=== PATIENT | female | born 1955 | race Caucasian/White ===

== ENCOUNTER 2017-06-04 11:55 | Inpatient (IN) | payer OTHER ==
[2017-06-04] VITALS (8 sets, daily range): BP systolic 83–111; BP diastolic 54–65; PULSE 99–115; RESP 16–22; TEMP 98.1–99; O2SAT 90–97
[~2017-06-04] VITALS: Ht 162.6 cm; Wt 67.4 kg
[~2017-06-04 11:55] MED LIST: ADVA500A INH; ALBU6.7H INH; FLUT50SP EACH NARE; HYDR50TA94 PO; IPRASOL INH; ONE-TAB PO; PRAM0.12 PO; PRED10 PO; SYMB160A INH; Tumeric PO; UMEC1AER INH; VENTAER INH; ZOLP10TA3 PO
[2017-06-04] MEDS ORDERED: ADVA100A INH (12:30)
[2017-06-04] MEDS ORDERED: VENTAER INH (12:30)
[2017-06-04] MEDS ORDERED: ALBU0.08 NEB (12:30)
[2017-06-04] MEDS ORDERED: SYMB160A INH (12:30)
[2017-06-04] MEDS ORDERED: PRAM0.12 PO (12:30)
[2017-06-04] MEDS ORDERED: SODIUM CHLORIDE 0.9% FLUSH 10 ML FLUSH IVF PRN (12:30)
[2017-06-04] MEDS ORDERED: methylPREDNISolone SOD SUCC 125 MG/2 ML VIAL IVP ONE (12:30)
[2017-06-04] MEDS: RESP: ALBUTEROL 2.5 MG/IPRATROPIUM 0.5 MG NEB (SCH) INH (12:32)
[2017-06-04 13:02] LABS: AUTOMATED NEUTROPHIL # 17.6 TH/MM3 (1.8-7.7); BASOPHIL # 0.4 TH/MM3 (0-0.2); BASOPHIL % 1.7 % (0.0-2.0); EOSINOPHIL % 0.2 % (0.0-4.0); HEMATOCRIT 45.3 % (35.0-46.0); LYMPH % 9.1 % (9.0-44.0); LYMPHOCYTE # 1.9 TH/MM3 (1.0-4.8); MEAN CELL VOLUME 91.4 FL (80.0-100.0); MEAN CORPUSCULAR HGB CONC 32.8 % (32.0-36.0); MONO % 6.7 % (0.0-8.0); NEUT % 82.3 % (16.0-70.0); PLATELET COUNT 268 TH/MM3 (150-450); RED BLOOD COUNT 4.95 MIL/MM3 (4.00-5.30); RED CELL DISTRIBUTION WIDTH 14.6 % (11.6-17.2); WHITE BLOOD COUNT 21.3 TH/MM3 (4.0-11.0)
--- NOTE | 2017-06-04 13:07 | RADRPT ---
EXAM DATE/TIME: 06/04/2017 12:50 [place] COMPARISON: No previous studies available for comparison. INDICATIONS : Short of breath. MEDICAL HISTORY : Chronic obstructive pulmonary disease. SURGICAL HISTORY : None. ENCOUNTER: Initial ACUITY: 1 day PAIN SCORE: 0/10 LOCATION: Bilateral chest FINDINGS: Portable upright AP view of the chest demonstrates a normal-sized cardiac silhouette. There are inter stitial opacities bilaterally, right slightly greater than left. No pleural effusion or pneumothorax is identified. There is possible consolidation at the peripheral right lung base. The bones and soft tissues demonstrate no acute finding. CONCLUSION: 1. Interstitial opacities bilaterally of uncertain chronicity. 2. Possible mild consolidation at the right lung base. Mustapha Fraire MD on June 04, 2017 at 13:05 Board Certified Radiologist. This report was verified electronically.
[2017-06-04 13:10] LABS: CHLORIDE 102 MEQ/L (98-107); POTASSIUM 3.7 MEQ/L (3.5-5.1); SODIUM (NA) 137 MEQ/L (136-145)
[2017-06-04 13:13] LABS: HEMO FLAGS AUTO DIFF
[2017-06-04 13:15] LABS: ANION GAP 9 MEQ/L (5-15); BICARBONATE 26.1 MEQ/L (21.0-32.0); BLOOD UREA NITROGEN 7 MG/DL (7-18)
[2017-06-04 13:18] LABS: GLOMERULAR FILTRATION RATE 78 ML/MIN (>89)
[2017-06-04] MEDS ORDERED: PRED20 PO (13:20)
[2017-06-04] MEDS ORDERED: FLUT1INH INH (13:20)
[2017-06-04] MEDS ORDERED: AZIT250T3 PO (13:20)
--- NOTE | 2017-06-04 13:20 | PD ---
HPI Chief Complaint: Respiratory Symptoms Time Seen by Provider: 12:15 Travel History International Travel<30 days: No Contact w/Intl Traveler<30days: No Traveled to known affect area: No History of Present Illness HPI 62-year-old female arrives complaining of cough and fever generalized aches and pains for about 3 days. She has been using her nebulizer at home every 3 hours or so. She has a history of COPD. She reports a cough with green phlegm production. She notes increasing shortness of breath with exertion. She has chest pain which she attributes to coughing. She states typically pneumonia/ COPD exacerbation presents similarly and responds well to azithromycin and prednisone. 2 days prior she took 20 mg of prednisone at home from a leftover prescription which she found to be unhelpful. PFSH Past Medical History COPD: Yes Respiratory: Yes (COPD) Tetanus Vaccination: > 5 Years Influenza Vaccination: No ?: Not Menopausal: Yes Past Surgical History Genitourinary Surgery: Yes (Bladder) Social History Alcohol Use: Yes (Occ.) Tobacco Use: No Substance Use: No Allergies-Medications (Allergen,Severity, Reaction): Coded Allergies: Advil (Verified Allergy, Severe, Anaphylaxis, 06/04/17) Aleve (Verified Allergy, Severe, Anaphylaxis, 06/04/17) Reported Meds & Prescriptions Reported Meds & Active Scripts Active Azithromycin 250 Mg Tab 250 Mg PO DIRECTED Take 2 tabs (500 mg) on day 1 then 1 tab daily x 4 days. Prednisone 20 Mg Tab 40 Mg PO DAILY 4 Days Take 40 mg (2 tablets) daily for 5 days Breo Ellipta Inh (Fluticasone/Vilanterol) 100-25 Mcg/Act Inh 1 Puff INH DAILY Use daily at the same time. Reported Advair Diskus Inh (Fluticasone-Salmeterol Inh) 100-50 Mcg/Blist Aer 1 Puff INH BID Rinse mouth after use. Albuterol Neb (Albuterol Sulfate) 2.5 Mg/3 Ml Neb 2.5 Mg NEB TID NEB PRN Ventolin Hfa 18 GM Inh (Albuterol Sulfate) 90 Mcg/Act Aer 2 Puff INH TID PRN Symbicort Inh (Budesonide/Formoterol Fumarate) 160-4.5 Mcg/Act Aero 2 Puff INH Q12HR Pramipexole (Pramipexole Dihydrochloride) 0.125 Mg Tab 2 Tab PO DIRECTED Review of Systems Except as stated in HPI: all other systems reviewed are Neg General / Constitutional: Positive: Fever Cardiovascular: Positive: Chest Pain or Discomfort Respiratory: Positive: Cough, Wheezing Gastrointestinal: No: Nausea Physical Exam Narrative GENERAL: 62-year-old female well-nourished well-developed SKIN: Warm and dry. HEAD: Atraumatic. Normocephalic. EYES: Pupils equal and round. No scleral icterus. No injection or drainage. ENT: No nasal bleeding or discharge. Mucous membranes pink and moist. NECK: Trachea midline. No JVD. CARDIOVASCULAR: Minimal tachycardia with a rate of 104 approximately. Regular rhythm. RESPIRATORY: Wheezing present bilaterally. Speaking sentences. GASTROINTESTINAL: Abdomen soft, non-tender, nondistended. Hepatic and splenic margins not palpable. MUSCULOSKELETAL: Extremities without clubbing, cyanosis, or edema. No obvious deformities. NEUROLOGICAL: Awake and alert. No obvious cranial nerve deficits. Motor grossly within normal limits. Five out of 5 muscle strength in the arms and legs. Normal speech. PSYCHIATRIC: Appropriate mood and affect; insight and judgment normal. Data Data Last Documented VS Vital Signs Date Time Temp Pulse Resp B/P Pulse Ox O2 Delivery O2 Flow Rate FiO2 06/04/17 13:20 98.9 109 18 103/58 94 Nasal Cannula 2 Vital signs reviewed Orders Complete Blood Count With Diff (06/04/17 12:19) Basic Metabolic Panel (Bmp) (06/04/17 12:19) B-Type Natriuretic Peptide (06/04/17 12:19) Ckmb (Isoenzyme) Profile (06/04/17 12:19) Troponin I (06/04/17 12:19) Influenzae A/B Antigen (06/04/17 12:19) Iv Access Insert/Monitor (06/04/17 12:19) Electrocardiogram (06/04/17 12:19) Ecg Monitoring (06/04/17 12:19) Oximetry (06/04/17 12:19) Oxygen Administration (06/04/17 12:19) Chest, Single Ap (06/04/17 12:19) Sodium Chloride 0.9% Flush (Ns Flush) (06/04/17 12:30) Methylprednisolone So Succ Inj (Solumedr (06/04/17 12:30) Albuterol-Ipratropium Neb (Duoneb Neb) (06/04/17 12:30) Albuterol Neb (Albuterol Neb) (06/04/17 13:45) Labs Laboratory Tests Test 06/04/17 12:55 White Blood Count 21.3 TH/MM3 Red Blood Count 4.95 MIL/MM3 Hemoglobin 14.9 GM/DL Hematocrit 45.3 % Mean Corpuscular Volume 91.4 FL Mean Corpuscular Hemoglobin 30.0 PG Mean Corpuscular Hemoglobin 32.8 % Concent Red Cell Distribution Width 14.6 % Platelet Count 268 TH/MM3 Mean Platelet Volume 7.2 FL Neutrophils (%) (Auto) 82.3 % Lymphocytes (%) (Auto) 9.1 % Monocytes (%) (Auto) 6.7 % Eosinophils (%) (Auto) 0.2 % Basophils (%) (Auto) 1.7 % Neutrophils # (Auto) 17.6 TH/MM3 Lymphocytes # (Auto) 1.9 TH/MM3 Monocytes # (Auto) 1.4 TH/MM3 Eosinophils # (Auto) 0.0 TH/MM3 Basophils # (Auto) 0.4 TH/MM3 CBC Comment AUTO DIFF Differential Total Cells 100 Counted Neutrophils % (Manual) 79 % Band Neutrophils % 3 % Lymphocytes % 11 % Monocytes % 7 % Neutrophils # (Manual) 17.5 TH/MM3 Differential Comment FINAL DIFF MANUAL Sodium Level 137 MEQ/L Potassium Level 3.7 MEQ/L Chloride Level 102 MEQ/L Carbon Dioxide Level 26.1 MEQ/L Anion Gap 9 MEQ/L Blood Urea Nitrogen 7 MG/DL Creatinine 0.75 MG/DL Estimat Glomerular Filtration 78 ML/MIN Rate Random Glucose 109 MG/DL Calcium Level 9.0 MG/DL Total Creatine Kinase 88 U/L Troponin I LESS THAN 0.02 NG/ML B-Type Natriuretic Peptide 32 PG/ML [facility] Medical Decision Making Medical Screen Exam Complete: Yes Emergency Medical Condition: Yes Differential Diagnosis COPD exacerbation, pneumonia, effusion, CHF, pneumothorax, PE Narrative Course CBC & BMP Diagram 06/04/17 12:55 Troponin less than 0.02 BNP 32 Influenza studies are negative EKG reveals a sinus rhythm at [address] changes Patient received 3 rounds of DuoNeb as well as 125 mg Solu-Medrol. Persistent wheezing noted. 3 additional rounds of albuterol ordered. Since sufficient improvement for discharge home noted by patient who is quite adamant against staying. Prednisone and azithromycin prescription. Return precautions discussed. Patient verbalized understanding. Of note there is a leukocytosis of 21,000 which in this scenario is considered to be combination of presumably the patient's right lung base pneumonia and prednisone from 2 days prior. Diagnosis Primary Impression: COPD (chronic obstructive pulmonary disease) Qualified Code: J44.9 - Chronic obstructive pulmonary disease, unspecified COPD type Additional Impression: Pneumonia Qualified Code: J18.1 - Pneumonia of right lower lobe due to infectious organism Referrals: Primary Care Physician 2 days Additional Instructions: You have a choice when it comes to health care, and we are glad that you chose [facility]. Hopefully, we have met your expectations on today's visit. You are welcome to return to [facility] at any time, as we are committed to meeting the health care needs of our community. If difficulty breathing worsens or if chest pain worsens or if your fever persists please return to the ED right away. Please do not hesitate to return for any reason you consider to be appropriate. Med/Other Pt SpecificInfo: Prescription(s) given Scripts Azithromycin 250 Mg [id number] Mg PO DIRECTED #6 TAB Ref 0 Take 2 tabs (500 mg) on day 1 then 1 tab daily x 4 days. Prov:Eduardo Pickard MD 06/04/17 Prednisone 20 Mg Tab40 Mg PO DAILY 4 Days Ref 0 Take 40 mg (2 tablets) daily for 5 days Prov:Eduardo Pickard MD 06/04/17 Fluticasone-Vilanterol Inh (Breo Ellipta Inh)100-25 Mcg/Act Inh1 Puff INH DAILY #1 INHALER Ref 0 Use daily at the same time. Prov:Eduardo Pickard MD 06/04/17 Disposition: 01 DISCHARGE HOME Condition: Stable Eduardo Pickard MD Jun 04, 2017 13:20
[2017-06-04 13:41] LABS: CREATINE KINASE 88 U/L (26-192)
[2017-06-04 13:47] LABS: BANDS 3 % (0-6); NEUTROPHIL # MANUAL DIFF 17.5 TH/MM3 (1.8-7.7); POLYS (SEG NEUTROPHILS) 79 % (16-70); SCAN/DIFF FINAL DIFF MANUAL; WBC DIFF SAMPLE 100
[2017-06-04] MEDS: RESP: ALBUTEROL 2.5 MG/3 ML NEB (SCH) INH ×2 (13:56→14:14)
[2017-06-04] MEDS ORDERED: cefTRIAXone INJ 1,000 MG in SODIUM CHLORIDE 0.9% INJ 100 ML IV ONE (15:00)
[2017-06-04] MEDS ORDERED: AZITHROMYCIN INJ 500 MG in SODIUM CHLOR 0.9% 250 ML INJ 250 ML IV ONE (15:00)
--- NOTE | 2017-06-04 15:09 | EKG ---
Date Performed: 06/04/2017 Time Performed: 12:45:49 PTAGE: 62 years EKG: SINUS TACHYCARDIA NONSPECIFIC ST & T-WAVE ABNORMALITY ABNORMAL RHYTHM ECG Compared to the PREVIOUS TRACING rate has increased . PREVIOUS TRACIN09/28/1997 15.02 DOCTOR: Jed Coughlin Interpretating Date/Time 06/04/2017 15:07:55
[2017-06-04] MEDS ORDERED: cefTRIAXone INJ 1,000 MG in SODIUM CHLORIDE 0.9% INJ 100 ML IV SCH (15:30)
[2017-06-04] MEDS ORDERED: PRAMIPEXOLE PO SCH (15:30)
[2017-06-04] MEDS ORDERED: SODIUM CHLORIDE 0.9% FLUSH 10 ML FLUSH IV FLUSH PRN (15:30)
[2017-06-04] MEDS ORDERED: AZITHROMYCIN 250 MG TAB PO SCH (15:30)
[2017-06-04] MEDS ORDERED: RESP: ALBUTEROL 2.5 MG/IPRATROPIUM 0.5 MG NEB (PRN) NEB (15:30)
[2017-06-04] MEDS ORDERED: LORazepam 2 MG/ML VIAL IV PUSH ONE (16:00)
--- NOTE | 2017-06-04 16:48 | HHI.HP ---
[facility] No Primary Care Physician Admission Diagnosis PNA, COPD, Hypoxemia Diagnoses: (1) COPD with exacerbation (2) COPD with respiratory failure, acute (3) COPD with lower respiratory infection (4) Respiratory failure with hypoxia (5) Community acquired bacterial pneumonia Chief Complaint: Shortness of breath Travel History International Travel<30 Days: No Contact w/Intl Traveler <30 Da: No Traveled to Known Affected Are: No History of Present Illness 62-year-old female with a history of COPD came to the ED for evaluation of worsening respiratory symptoms including shortness of breath with exertion times several day duration, along with cough production of green sputum as well as febrile episodes. Reported maximal temperature of 104 yesterday. Patient states over the past several days she's been puffing more and had no relief on Sunday after she up her nebulizer treatment to every 2 hours. She reported having difficulty catching her breath. While in emergency department as patient was being initially discharged she was noted to be more dyspneic with a pulse ox of 88%. Patient has smoked in the past 1 ppd since the age of 14 however now she uses a Vaporized e-cigarette .She denies any hemoptysis or GI bleed. Review of Systems Except as stated in HPI: all other systems reviewed are Neg Past Family Social History Past Medical History COPD Past Surgical History Genitourinary Surgery: Yes (Bladder) Reported Medications Azithromycin 250 Mg Tab 250 Mg PO DIRECTED Take 2 tabs (500 mg) on day 1 then 1 tab daily x 4 days. Prednisone 20 Mg Tab 40 Mg PO DAILY 4 Days Take 40 mg (2 tablets) daily for 5 days Breo Ellipta Inh (Fluticasone/Vilanterol) 100-25 Mcg/Act Inh 1 Puff INH DAILY Use daily at the same time. Reported Advair Diskus Inh (Fluticasone-Salmeterol Inh) 100-50 Mcg/Blist Aer 1 Puff INH BID Rinse mouth after use. Albuterol Neb (Albuterol Sulfate) 2.5 Mg/3 Ml Neb 2.5 Mg NEB TID NEB PRN Ventolin Hfa 18 GM Inh (Albuterol Sulfate) 90 Mcg/Act Aer 2 Puff INH TID PRN Symbicort Inh (Budesonide/Formoterol Fumarate) 160-4.5 Mcg/Act Aero 2 Puff INH Q12HR Pramipexole (Pramipexole Dihydrochloride) 0.125 Mg Tab 2 Tab PO DIRECTED Allergies: Coded Allergies: Advil (Verified Allergy, Severe, Anaphylaxis, 06/04/17) Aleve (Verified Allergy, Severe, Anaphylaxis, 06/04/17) Family History Father has a history of throat cancer Social History Alcohol Use: Yes (Occ.) Tobacco Use: No Substance Use: No Physical Exam Vital Signs Vital Signs Date Time Temp Pulse Resp B/P Pulse Ox O2 Delivery O2 Flow Rate FiO2 06/04/17 14:20 115 22 104/54 92 Nasal Cannula 2 06/04/17 13:20 98.9 109 18 103/58 94 Nasal Cannula 2 06/04/17 12:35 95 Nasal Cannula 2.00 06/04/17 12:20 92 Nasal Cannula 2 06/04/17 12:20 22 92 Nasal Cannula 2 06/04/17 12:20 92 Nasal Cannula 2 06/04/17 12:05 99.0 111 22 83/57 90 Physical Exam GENERAL: This is a well-nourished, well-developed patient, in no apparent distress. SKIN: No rashes, ecchymoses or lesions. Cool and dry. HEAD: Atraumatic. Normocephalic. No temporal or scalp tenderness. EYES: Pupils equal round and reactive. Extraocular motions intact. No scleral icterus. No injection or drainage. ENT: Nose without bleeding, purulent drainage or septal hematoma. Throat without erythema, tonsillar hypertrophy or exudate. Uvula midline. Airway patent. NECK: Trachea midline. No JVD or lymphadenopathy. Supple, nontender, no meningeal signs. CARDIOVASCULAR: Regular rate and rhythm without murmurs, gallops, or rubs. RESPIRATORY: Breath sounds Decrease bilaterally. + wheezes GASTROINTESTINAL: Abdomen soft, non-tender, nondistended. No hepato-splenomegaly , or palpable masses. No guarding. MUSCULOSKELETAL: Extremities without clubbing, cyanosis, or edema. No joint tenderness, effusion, or edema noted. No calf tenderness. Negative Homans sign bilaterally. NEUROLOGICAL: Awake and alert. Cranial nerves II through XII intact. Motor and sensory grossly within normal limits. Five out of 5 muscle strength in all muscle groups. Normal speech. Laboratory Laboratory Tests Test 06/04/17 12:55 White Blood Count 21.3 Red Blood Count 4.95 Hemoglobin 14.9 Hematocrit 45.3 Mean Corpuscular Volume 91.4 Mean Corpuscular Hemoglobin 30.0 Mean Corpuscular Hemoglobin 32.8 Concent Red Cell Distribution Width 14.6 Platelet Count 268 Mean Platelet Volume 7.2 Neutrophils (%) (Auto) 82.3 Lymphocytes (%) (Auto) 9.1 Monocytes (%) (Auto) 6.7 Eosinophils (%) (Auto) 0.2 Basophils (%) (Auto) 1.7 Neutrophils # (Auto) 17.6 Lymphocytes # (Auto) 1.9 Monocytes # (Auto) 1.4 Eosinophils # (Auto) 0.0 Basophils # (Auto) 0.4 CBC Comment AUTO DIFF Differential Total Cells 100 Counted Neutrophils % (Manual) 79 Band Neutrophils % 3 Lymphocytes % 11 Monocytes % 7 Neutrophils # (Manual) 17.5 Differential Comment FINAL DIFF MANUAL Sodium Level 137 Potassium Level 3.7 Chloride Level 102 Carbon Dioxide Level 26.1 Anion Gap 9 Blood Urea Nitrogen 7 Creatinine 0.75 Estimat Glomerular Filtration 78 Rate Random Glucose 109 Calcium Level 9.0 Total Creatine Kinase 88 Troponin I LESS THAN 0.02 B-Type Natriuretic Peptide 32 Date/Time Procedure Status Source Growth 06/04/17 15:05 Aerobic Blood Culture Received Blood Peripheral Pending 06/04/17 15:05 Anaerobic Blood Culture Received Blood Peripheral Pending 06/04/17 13:20 Influenza Types A,B Antigen (QUOC) - Final Complete Nasal Aspirate NEGATIVE FOR FLU A AND B ANTIGEN.... Result Diagram: 06/04/17 1255 06/04/17 1255 Imaging Last Impressions Chest X-Ray 06/04/17 1219 Signed Impressions: Service Date/Time: Sunday, June 04, 2017 12:50 - CONCLUSION: 1. Interstitial opacities bilaterally of uncertain chronicity. 2. Possible mild consolidation at the right lung base. Mustapha Fraire MD Assessment and Plan Problem List: (1) COPD with exacerbation ICD Code: J44.1 Status: Acute (2) Community acquired bacterial pneumonia ICD Code: J15.9 Status: Acute (3) Respiratory failure, acute ICD Code: J96.00 Status: Acute (4) Respiratory failure with hypoxia ICD Code: J96.91 Status: Acute (5) COPD with respiratory failure, acute ICD Code: J96.00 Status: Acute (6) COPD with lower respiratory infection ICD Code: J44.0 Status: Acute Assessment and Plan 62 year-old female with Acute COPD exacerbation COPD with respiratory failure COPD with lower respiratory infection Chest x-ray noted and review by me with finding of Interstitial opacities bilaterally of uncertain chronicity. 2. Possible mild consolidation at the right lung base Pulse oximetry documented as patient was leaving the ED 88 % Status post appendectomy Medrol 125 mg IV 1, scheduled Solu-Medrol 40 mg IV every 8H, long and short acting bronchodilator, antibiotics, Mucinex Check ABGs Perform walk test prior to discharge Community-acquired bacteria pneumonia Chest x-ray noted and review by me with finding of possible mild consolidation at the right lung base, and patient with leukocytosis Status post azithromycin and Rocephin, continue antibiotics pending culture Influenza A and B negative, check urinary pneumococcal and Legionella antigens Check Sputum culture Leukocytosis Maybe be secondary to steroid versus infectious process Monitor WBC DVT prophylaxis: Bilateral SCDs Code Status Full code Discussed Condition With Patient, , ED physician Physician Certification 2 Midnight Certification Type: Admission for Inpatient Services Order for Inpatient Services The services are ordered in accordance with Medicare regulations or non- Medicare payer requirements, as applicable. In the case of services not specified as inpatient-only, they are appropriately provided as inpatient services in accordance with the 2-midnight benchmark. Estimated LOS (days): 2 days is the estimated time the patient will need to remain in the hospital, assuming treatment plan goals are met and no additional complications. Post-Hospital Plan: Not yet determined Marcello Jackson MD Jun 04, 2017 16:48
[2017-06-04 17:25] LABS: BLOOD GAS BASE EXCESS 0.3 mmol/L (-2-2); BLOOD GAS CARBOXYHEMOGLOBIN 3.6 % (0-4); BLOOD GAS HCO3 25 mmol/L (22-26); BLOOD GAS O2 HGB SATURATION 88 % (90-100); BLOOD GAS OXYGEN CONTENT 17.8 Vol % (12.0-20.0); BLOOD GAS PCO2 42 mmHG (38-42); BLOOD GAS PO2 64 mmHG (61-120); BLOOD GAS TOTAL HGB 14.4 G/DL (12.0-16.0); CRITICAL VALUE YES; OXYGEN DEVICE NASAL CANNULA; TEMP CORR TO 98.6
[2017-06-04 17:26] LABS: DRAW SITE RT RADIAL; LITER FLOW 2 L/M; NUMBER OF ARTERIAL PUNCTURES 1; STAT YES; ULNAR PULSE PRESENT
[2017-06-04] MEDS: PRAMIPEXOLE DIHYDROCHLORIDE 0.25 MG TAB PO SCH ×2 (17:57→21:02)
[2017-06-04] MEDS ORDERED: ALPRAZolam 0.25 MG TAB PO PRN (18:15)
[2017-06-04] MEDS: RESP: ALBUTEROL 2.5 MG/IPRATROPIUM 0.5 MG NEB (SCH) NEB (19:31)
[2017-06-04] MEDS ORDERED: NON-FORMULARY DRUG (Fluticasone-Salmeterol Inh (Advair Diskus Inh) 1 PUFF) INH SCH (21:00)
[2017-06-04] MEDS: BUDESONIDE-FORMOTEROL 160/4.5 MCG INHALER INH SCH (21:01)
[2017-06-04] MEDS: guaiFENesin E.R. 600 MG TAB PO SCH (21:02)
[2017-06-04] MEDS: SODIUM CHLORIDE 0.9% FLUSH 10 ML FLUSH IV FLUSH SCH (21:03)
[2017-06-04] MEDS: methylPREDNISolone SOD SUCC 40 MG/1 ML VIAL IV PUSH SCH (21:03)
[2017-06-05] VITALS (7 sets, daily range): BP systolic 102–117; BP diastolic 65–69; PULSE 91–97; RESP 16–20; TEMP 96.7–97.6; O2SAT 92–97
[2017-06-05] MEDS: methylPREDNISolone SOD SUCC 40 MG/1 ML VIAL IV PUSH SCH ×2 (04:58→22:40)
[2017-06-05] MEDS: RESP: ALBUTEROL 2.5 MG/IPRATROPIUM 0.5 MG NEB (SCH) NEB ×3 (07:35→20:59)
[2017-06-05] MEDS: AZITHROMYCIN 250 MG TAB PO SCH (08:27)
[2017-06-05] MEDS: PRAMIPEXOLE DIHYDROCHLORIDE 0.25 MG TAB PO SCH ×4 (08:28→22:39)
[2017-06-05] MEDS: guaiFENesin E.R. 600 MG TAB PO SCH ×2 (08:28→22:39)
[2017-06-05] MEDS: cefTRIAXone INJ 1,000 MG in SODIUM CHLORIDE 0.9% INJ 100 ML IV SCH (08:31)
[2017-06-05] MEDS: SODIUM CHLORIDE 0.9% FLUSH 10 ML FLUSH IV FLUSH SCH ×2 (08:31→22:40)
[2017-06-05] MEDS: BUDESONIDE-FORMOTEROL 160/4.5 MCG INHALER INH SCH ×2 (08:31→22:38)
--- NOTE | 2017-06-05 10:07 | HHI.PR ---
Subjective Remarks Follow-up COPD with respiratory failure/COPD with lower lung infection/community -acquired bacteria pneumonia 06/05/17-patient seen and examined, reports significant improvement or shortness of breath and currently on 2 L nasal cannula. Afebrile and no acute event overnight Objective Vitals Vital Signs Date Time Temp Pulse Resp B/P Pulse Ox O2 Delivery O2 Flow Rate FiO2 06/05/17 08:00 97.4 95 19 106/66 92 06/05/17 07:40 97 Nasal Cannula 2.00 06/05/17 00:00 96.9 97 16 102/69 94 06/04/17 20:00 98.1 99 16 99/65 97 06/04/17 19:30 92 Nasal Cannula 2.00 06/04/17 16:30 98.3 102 20 111/57 93 06/04/17 14:20 115 22 104/54 92 Nasal Cannula 2 06/04/17 13:20 98.9 109 18 103/58 94 Nasal Cannula 2 06/04/17 12:35 95 Nasal Cannula 2.00 06/04/17 12:20 92 Nasal Cannula 2 06/04/17 12:20 22 92 Nasal Cannula 2 06/04/17 12:20 92 Nasal Cannula 2 06/04/17 12:05 99.0 111 22 83/57 90 I/O 06/04/17 06/04/17 06/04/17 06/05/17 06/05/17 06/05/17 06:59 14:59 22:59 06:59 14:59 22:59 Intake Total 600 ml 180 ml Balance 600 ml 180 ml Intake Oral 240 ml 180 ml IV Total 360 ml # Voids 2 1 # Bowel Movements 0 0 Result Diagram: 06/04/17 1255 06/04/17 1255 Imaging Last Impressions Chest X-Ray 06/04/17 1219 Signed Impressions: Service Date/Time: Sunday, June 04, 2017 12:50 - CONCLUSION: 1. Interstitial opacities bilaterally of uncertain chronicity. 2. Possible mild consolidation at the right lung base. Mustapha Fraire MD Objective Remarks GENERAL: NAD SKIN: Warm and dry. HEAD: Normocephalic. EYES: No scleral icterus. No injection or drainage. NECK: Supple, trachea midline. No JVD or lymphadenopathy. CARDIOVASCULAR: Regular rate and rhythm without murmurs, gallops, or rubs. RESPIRATORY: Breath sounds decrease bilaterally. No accessory muscle use. Expiratory wheezes bilaterally GASTROINTESTINAL: Abdomen soft, non-tender, nondistended. MUSCULOSKELETAL: No cyanosis, or edema. BACK: Nontender without obvious deformity. No CVA tenderness. A/P Problem List: (1) COPD with exacerbation ICD Code: J44.1 Status: Acute (2) COPD with respiratory failure, acute ICD Code: J96.00 Status: Acute (3) COPD with lower respiratory infection ICD Code: J44.0 Status: Acute (4) Respiratory failure with hypoxia ICD Code: J96.91 Status: Acute (5) Community acquired bacterial pneumonia ICD Code: J15.9 Status: Acute Assessment and Plan 62 year-old female with Acute COPD exacerbation COPD with respiratory failure COPD with lower respiratory infection Chest x-ray with finding of Interstitial opacities bilaterally of uncertain chronicity. 2. Possible mild consolidation at the right lung base Status post Solu Medrol 125 mg IV 1, change Solu-Medrol 20 mg IV every 12H, long and short acting bronchodilator, antibiotics, Mucinex Perform walk test prior to discharge Community-acquired bacteria pneumonia Chest x-ray with finding of possible mild consolidation at the right lung base, and patient with leukocytosis Status post azithromycin and Rocephin, continue antibiotics pending culture Influenza A and B negative, urinary pneumococcal and Legionella antigens pending Sputum culture pending Leukocytosis Maybe be secondary to steroid versus infectious process Monitor WBC DVT prophylaxis: Bilateral SCDs Marcello Jackson MD Jun 05, 2017 10:07
[2017-06-05] MEDS ORDERED: HYDR50TA94 PO (17:38)
[2017-06-05] MEDS ORDERED: hydrOXYzine HCL 25 MG TAB PO ONE (22:30)
[2017-06-06] VITALS: BP 102/65; PULSE 72; RESP 20; TEMP 97.2; O2SAT 98
[2017-06-06 06:05] LABS: POTASSIUM 4.1 MEQ/L (3.5-5.1)
[2017-06-06 06:11] LABS: BICARBONATE 30.8 MEQ/L (21.0-32.0)
[2017-06-06 06:12] LABS: BASOPHIL % 0.2 % (0.0-2.0); LYMPH % 3.2 % (9.0-44.0); LYMPHOCYTE # 0.7 TH/MM3 (1.0-4.8); MEAN CELL VOLUME 90.8 FL (80.0-100.0); MEAN CORPUSCULAR HEMOGLOBIN 30.3 PG (27.0-34.0); MEAN CORPUSCULAR HGB CONC 33.4 % (32.0-36.0); MONO % 1.1 % (0.0-8.0); NEUT % 95.5 % (16.0-70.0); PLATELET COUNT 328 TH/MM3 (150-450); RED BLOOD COUNT 4.62 MIL/MM3 (4.00-5.30); RED CELL DISTRIBUTION WIDTH 14.3 % (11.6-17.2); WHITE BLOOD COUNT 20.9 TH/MM3 (4.0-11.0)
[2017-06-06 06:13] LABS: HEMO FLAGS DIFF FINAL
[2017-06-06] MEDS: RESP: ALBUTEROL 2.5 MG/IPRATROPIUM 0.5 MG NEB (SCH) NEB (07:23)
[2017-06-06 07:27] VITALS: O2SAT 90
[2017-06-06 08:11] VITALS: O2SAT 97
[2017-06-06] MEDS: PRAMIPEXOLE DIHYDROCHLORIDE 0.25 MG TAB PO SCH ×2 (08:28→13:50)
[2017-06-06] MEDS: methylPREDNISolone SOD SUCC 40 MG/1 ML VIAL IV PUSH SCH (08:29)
[2017-06-06] MEDS: AZITHROMYCIN 250 MG TAB PO SCH (08:29)
[2017-06-06] MEDS: BUDESONIDE-FORMOTEROL 160/4.5 MCG INHALER INH SCH (08:32)
[2017-06-06] MEDS: cefTRIAXone INJ 1,000 MG in SODIUM CHLORIDE 0.9% INJ 100 ML IV SCH (08:34)
[2017-06-06] MEDS: SODIUM CHLORIDE 0.9% FLUSH 10 ML FLUSH IV FLUSH SCH (08:34)
[2017-06-06] MEDS: guaiFENesin E.R. 600 MG TAB PO SCH (08:37)
[2017-06-06 08:48] VITALS: BP 120/73; PULSE 97; RESP 15; TEMP 96.1; O2SAT 91
--- NOTE | 2017-06-06 08:56 | HHI.PR ---
Subjective Remarks Follow-up COPD with respiratory failure/COPD with lower lung infection/community -acquired bacteria pneumonia 06/05/17-patient seen and examined, reports significant improvement or shortness of breath and currently on 2 L nasal cannula. Afebrile and no acute event overnight 06/06/17-patient seen and examined, she only has shortness of breath with exertion otherwise stable. Now only has nonproductive cough but however improved. Afebrile. Would like to go home today. Objective Vitals Vital Signs Date Time Temp Pulse Resp B/P Pulse Ox O2 Delivery O2 Flow Rate FiO2 06/06/17 08:48 96.1 97 15 120/73 91 06/06/17 08:11 97 2.00 06/06/17 07:27 90 21 06/06/17 00:00 97.2 72 20 102/65 98 06/05/17 21:00 94 Nasal Cannula 2.00 06/05/17 20:00 96.7 93 20 117/67 96 06/05/17 16:00 97.1 95 17 109/65 95 06/05/17 12:00 97.6 91 18 110/68 93 I/O 06/05/17 06/05/17 06/05/17 06/06/17 06/06/17 06/06/17 07:00 15:00 23:00 07:00 15:00 23:00 Intake Total 180 ml 240 ml Balance 180 ml 240 ml Intake Oral 180 ml 240 ml # Voids 1 3 # Bowel Movements 0 0 Result Diagram: 06/06/17 0500 06/06/17 0500 Imaging Last Impressions Chest X-Ray 06/04/17 1219 Signed Impressions: Service Date/Time: Sunday, June 04, 2017 12:50 - CONCLUSION: 1. Interstitial opacities bilaterally of uncertain chronicity. 2. Possible mild consolidation at the right lung base. Mustapha Fraire MD Objective Remarks GENERAL: NAD SKIN: Warm and dry. HEAD: Normocephalic. EYES: No scleral icterus. No injection or drainage. NECK: Supple, trachea midline. No JVD or lymphadenopathy. CARDIOVASCULAR: Regular rate and rhythm without murmurs, gallops, or rubs. RESPIRATORY: Breath sounds decrease bilaterally. No accessory muscle use. Expiratory wheezes bilaterally GASTROINTESTINAL: Abdomen soft, non-tender, nondistended. MUSCULOSKELETAL: No cyanosis, or edema. BACK: Nontender without obvious deformity. No CVA tenderness. Procedures none A/P Problem List: (1) COPD with exacerbation ICD Code: J44.1 Status: Acute (2) COPD with respiratory failure, acute ICD Code: J96.00 Status: Acute (3) COPD with lower respiratory infection ICD Code: J44.0 Status: Acute (4) Respiratory failure with hypoxia ICD Code: J96.91 Status: Acute (5) Community acquired bacterial pneumonia ICD Code: J15.9 Status: Acute Assessment and Plan 62 year-old female with Acute COPD exacerbation COPD with respiratory failure COPD with lower respiratory infection Chest x-ray with finding of Interstitial opacities bilaterally of uncertain chronicity. 2. Possible mild consolidation at the right lung base Discontinue Solu-Medrol 20 mg IV every 12H, start prednisone 20 mg by mouth twice a day and continue long and short acting bronchodilator, antibiotics, Mucinex Perform walk test today Community-acquired bacteria pneumonia Chest x-ray with finding of possible mild consolidation at the right lung base, and patient with leukocytosis Status post azithromycin and Rocephin, continue antibiotics pending culture Influenza A and B negative, urinary pneumococcal and Legionella antigens pending Sputum culture pending Leukocytosis Maybe be secondary to steroid versus infectious process Monitor WBC DVT prophylaxis: Bilateral SCDs Marcello Jackson MD Jun 06, 2017 08:56
[2017-06-06] MEDS ORDERED: PRED20 PO (09:02)
[2017-06-06] MEDS ORDERED: VENTAER INH (09:02)
[2017-06-06] MEDS ORDERED: LACTCHW3 CHEW (09:02)
[2017-06-06] MEDS ORDERED: IPRA17I INH (09:02)
[2017-06-06] MEDS ORDERED: FLUT1INH INH (09:02)
[2017-06-06] MEDS ORDERED: AZIT500T2 PO (09:02)
--- NOTE | 2017-06-06 09:05 | HHI.DS ---
Discharge Summary Admission Date Jun 04, 2017 at 14:53 Discharge Date: Jun 06, 2017 Admitting Diagnosis PNA, COPD, Hypoxemia (1) COPD with exacerbation ICD Code: J44.1 (2) COPD with respiratory failure, acute ICD Code: J96.00 (3) COPD with lower respiratory infection ICD Code: J44.0 (4) Respiratory failure with hypoxia ICD Code: J96.91 (5) Community acquired bacterial pneumonia ICD Code: J15.9 Procedures none Brief History - From Admission 62-year-old female with a history of COPD came to the ED for evaluation of worsening respiratory symptoms including shortness of breath with exertion times several day duration, along with cough production of green sputum as well as febrile episodes. Reported maximal temperature of 104 yesterday. Patient states over the past several days she's been puffing more and had no relief on Sunday after she up her nebulizer treatment to every 2 hours. She reported having difficulty catching her breath. While in emergency department as patient was being initially discharged she was noted to be more dyspneic with a pulse ox of 88%. Patient has smoked in the past 1 ppd since the age of 14 however now she uses a Vaporized e-cigarette .She denies any hemoptysis or GI bleed. CBC/BMP: 06/06/17 0500 06/06/17 0500 Significant Findings Laboratory Tests Test 06/04/17 06/04/17 06/06/17 12:55 17:15 05:00 White Blood Count 21.3 TH/MM3 20.9 TH/MM3 (4.0-11.0) (4.0-11.0) Neutrophils (%) (Auto) 82.3 % 95.5 % (16.0-70.0) (16.0-70.0) Neutrophils # (Auto) 17.6 TH/MM3 20.0 TH/MM3 (1.8-7.7) (1.8-7.7) Monocytes # (Auto) 1.4 TH/MM3 (0-0.9) Basophils # (Auto) 0.4 TH/MM3 (0-0.2) Neutrophils % (Manual) 79 % (16-70) Neutrophils # (Manual) 17.5 TH/MM3 (1.8-7.7) Estimat Glomerular Filtration 78 ML/MIN (>89) 78 ML/MIN (>89) Rate Random Glucose 109 MG/DL 178 MG/DL (74-106) (74-106) Troponin I LESS THAN 0.02 NG/ML (0.02-0.05) Blood Gas Oxygen Saturation 88 % (90-100) Lymphocytes (%) (Auto) 3.2 % (9.0-44.0) Lymphocytes # (Auto) 0.7 TH/MM3 (1.0-4.8) Blood Urea Nitrogen 19 MG/DL (7-18) Imaging Last Impressions Chest X-Ray 06/04/17 1219 Signed Impressions: Service Date/Time: Sunday, June 04, 2017 12:50 - CONCLUSION: 1. Interstitial opacities bilaterally of uncertain chronicity. 2. Possible mild consolidation at the right lung base. Mustapha Fraire MD PE at Discharge GENERAL: NAD SKIN: Warm and dry. HEAD: Normocephalic. EYES: No scleral icterus. No injection or drainage. NECK: Supple, trachea midline. No JVD or lymphadenopathy. CARDIOVASCULAR: Regular rate and rhythm without murmurs, gallops, or rubs. RESPIRATORY: Breath sounds decrease bilaterally. No accessory muscle use. Expiratory wheezes bilaterally GASTROINTESTINAL: Abdomen soft, non-tender, nondistended. MUSCULOSKELETAL: No cyanosis, or edema. BACK: Nontender without obvious deformity. No CVA tenderness. Hospital Course She was admitted secondary to COPD exacerbation with respiratory failure as well as pneumonia for which she was treated with steroid, bronchodilator, antibiotics to which patient responded well. DVT and GI prophylaxis were provided. Patient conditions improved prior to discharge and vitals remained stable. She Will be discharged home on 5 day course of antibiotics and then tapered dose prednisone 7 days. Pt Condition on Discharge: Stable Discharge Disposition: Discharge Home Discharge Time: <= 30 minutes Discharge Instructions DIET: Follow Instructions for: Heart Healthy Diet Activities you can perform: Regular-No Restrictions Follow up Referrals: PCP Follow-up - 1 Week New Medications: Albuterol 18 GM Inh (Ventolin Hfa 18 GM Inh) 90 Mcg/Act Aer 1 PUFF INH Q4H PRN SHORTNESS OF BREATH #1 Ref 3 INHALER Azithromycin (Azithromycin) 500 Mg Tab 500 MG PO DAILY Infection #5 Ref 0 TAB Fluticasone-Vilanterol Inh (Breo Ellipta Inh) 100-25 Mcg/Act Inh 1 PUFF INH DAILY Use daily at the same time. Breathing Treatment #1 Ref 3 INHALER Ipratropium HFA 12.9 GM Inh (Atrovent HFA 12.9 GM Inh) 17 Mcg/Act Aer 2 PUFF INH QID Shortness of Breath #1 Ref 3 INHALER Lactobacillus Acidophilus (Lactinex) 1 Chew 1 TAB CHEW DAILY Nutritional Supplement #30 Ref 0 TAB Oxygen (O2) (Oxygen (O2)) Device 2 LITER JERO.CANULA CONTINUOUS Oxygen Concentrator Portable Gaseous 2 L/min via Nasal Canula Continuous For 99 months Prevent Hypoxemia #2 CYLINDER Prednisone (Prednisone) 20 Mg Tab 20 MG PO DAILY Infection #7 TAB Continued Medications: Albuterol 18 GM Inh (Ventolin Hfa 18 GM Inh) 90 Mcg/Act Aer 2 PUFF INH TID PRN SHORTNESS OF BREATH #1 Ref 0 INHALER Budesonide-Formoterol Inh (Symbicort Inh) 160-4.5 Mcg/Act Aero 2 PUFF INH Q12HR #1 Ref 0 INHALER Fluticasone-Vilanterol Inh (Breo Ellipta Inh) 100-25 Mcg/Act Inh 1 PUFF INH DAILY Use daily at the same time. #1 Ref 0 INHALER Hydroxyzine HCl (Hydroxyzine HCl) 50 Mg Tab 50 MG PO HS #30 Ref 0 TAB Pramipexole (Pramipexole) 0.125 Mg Tab 2 TAB PO DIRECTED Parkinson Disease Mgmt #60 Ref 0 TAB Discontinued Medications: Albuterol Neb (Albuterol Neb) 2.5 Mg/3 Ml Neb 2.5 MG NEB TID NEB PRN SHORTNESS OF BREATH #60 Ref 0 NEBULE Azithromycin (Azithromycin) 250 Mg Tab 250 MG PO DIRECTED Take 2 tabs (500 mg) on day 1 then 1 tab daily x 4 days. Infection #6 Ref 0 TAB Fluticasone-Salmeterol Inh (Advair Diskus Inh) 100-50 Mcg/Blist Aer 1 PUFF INH BID Rinse mouth after use. Asthma Management #1 Ref 0 INHALER Prednisone (Prednisone) 20 Mg Tab 40 MG PO DAILY Take 40 mg (2 tablets) daily for 5 days Days 4 Ref 0 TAB Marcello Jackson MD Jun 06, 2017 09:05
[2017-06-06] MEDS ORDERED: OXYGENDME NAS.CANULA ×2 (10:49→13:46)
[2017-06-06 14:13] VITALS: BP 118/78; PULSE 88; RESP 15; TEMP 96.9; O2SAT 98
[2017-06-06] MEDS ORDERED: predniSONE 20 MG TAB PO SCH (21:00)
== END 2017-06-06 15:10 | disposition home or self-care (01) | DRG 190 ==
LOC: PHED 11:55 → PHEDA 14:53 → PH3A 16:28
PROVIDERS: ADMIT Hospitalist; ATTEND Hospitalist
DX: J44.0 Chronic obstructive pulmonary disease with (acute) lower respiratory infection (principal); J15.9 Unspecified bacterial pneumonia; J96.01 Acute respiratory failure with hypoxia; J44.1 Chronic obstructive pulmonary disease with (acute) exacerbation; F17.290 Nicotine dependence, other tobacco product, uncomplicated
CPT/HCPCS: 36600; 71010; 80048; 82550; 82805; 83880; 84484; 85007; 85025; 85027; 87040; 87804; 93005; 94620; 94640; 94664; 96374; J0456; J0696; J2060; J2920; J2930; J7050; J7613

== ENCOUNTER → 2017-10-26 | Outpatient (CLI) | payer OTHER ==
[~2017-10-26] MED LIST changes: -ADVA500A INH; -ALBU6.7H INH; +AZIT500T2 PO; +FLUT1INH INH; -FLUT50SP EACH NARE; +IPRA17I INH; -IPRASOL INH; +LACTCHW3 CHEW; -ONE-TAB PO; +OXYGENDME NAS.CANULA; -PRED10 PO; +PRED20 PO; -Tumeric PO; -UMEC1AER INH; -ZOLP10TA3 PO
--- NOTE | 2017-10-26 20:56 | EKG ---
Date Performed: 10/26/2017 Time Performed: 13:12:06 PTAGE: 62 years EKG: Sinus rhythm . Anterior T wave changes are nonspecific Borderline ECG PREVIOUS TRACING : 06/04/2017 12.45 Compared to prior tracing no significant change DOCTOR: Edmond Lovelace Interpretating Date/Time 10/26/2017 20:54:02
== END ==
LOC: HCAV 11:56
PROVIDERS: ATTEND Psychiatry & Neurology Child & Adolescent Psychiatry
DX: F41.1 Generalized anxiety disorder (principal); F33.0 Major depressive disorder, recurrent, mild; R94.31 Abnormal electrocardiogram [ECG] [EKG]
CPT/HCPCS: 93005